=== PATIENT | female | born 1940 | race Caucasian/White ===

== ENCOUNTER 2016-10-08 13:30 | Emergency (ER) | payer MEDICARE, BC ==
[~2016-10-08] VITALS: Ht 167.6 cm; Wt 96.6 kg
--- NOTE | ~2016-10-08 | US85 ---
[facility] A Service [facility] RADIOLOGY TEXT RESULTS PATIENT: KENISHA BARRAZA LOCATION: [facility] : 36 UNIT #: [id number] AGE: [address]: Binh Jose MD SEX: F ORDER DR: [id number] [facility] [address] [place], [place] [address] [id number] MR#: [id number] #: [id number] NAME: KENISHA BARRAZA : 1940 SEX: F STUDY DATE/TIME: 10/08/2016 15:21 UNIT: MILY ROOM: STUDY DESCRIPTION: LE Veins Unilat or Ltd Stdy Attending Physician: Binh Jose M.D. Ordering Physician: Binh Jose M.D. Primary Care Physician: Angelo Holguin.P.[facility] MEDICAL IMAGING REPORT This report is preliminary unless electronic signature is present EXAM Lower extremity ultrasound veins unilateral or limited study. HISTORY Pain. Pain for 2 days after air travel, noticed a bruise on her leg with associated pain. No history of clots. Diabetes, hypertension, hyperlipidemia. No relevant surgical history. TECHNIQUE Venous ultrasound examination of the right lower extremity was performed using grayscale, spectral Doppler and color flow Doppler imaging. FINDINGS The examination is negative. There is no evidence of right lower extremity deep venous thrombus from the groin to the lower calf. Visualized greater saphenous vein is also patent. IMPRESSION Negative examination. No evidence of right lower extremity deep venous thrombosis. Dictated by... Eric Yu M.D. THIS IS AN ELECTRONICALLY VERIFIED REPORT Eric Yu M.D. at 10/09/2016 2:44 PM VASILE/julain TD: 10/09/2016 00:06 JOB #: [id number] [facility] A Service [facility] RADIOLOGY TEXT RESULTS PATIENT: KENISHA BARRAZA LOCATION: [facility] : 38 UNIT #: [id number] AGE: [address]: Binh Jose MD SEX: F ORDER DR: MEDICAL IMAGING REPORT Page 1 of 1 COPY
[~2016-10-08 13:30] MED LIST: VOLTAREN50 MG PO
== END 2016-10-08 16:31 | disposition home or self-care (01) ==
LOC: CED 13:30
DX: M79.661 Pain in right lower leg (principal); I10 Essential (primary) hypertension; E11.9 Type 2 diabetes mellitus without complications; K21.9 Gastro-esophageal reflux disease without esophagitis
CPT/HCPCS: 93971; 99283